=== PATIENT | female | born 1990 ===

== ENCOUNTER 2016-11-16 08:20 | Inpatient (IN) | payer MEDICAID, SELFPAY ==
[2016-11-16 08:46] VITALS: BMI 32.3
[2016-11-16] MEDS: Lactated Ringer's 1,000 ML IV SCH ×2 (09:00→10:00)
[2016-11-16] MEDS ORDERED: ceFAZolin 1 GM in Sodium Chloride 0.9% 100 ML IVPB ONE (09:03)
--- NOTE | 2016-11-16 09:21 | OBHP ---
Datetime: 11/16/2016 09:13 IP Adm Impression: Term, intrauterine IP Admit Plan: Admit to unit Admit Comment, IP Provider: 26yo edc/10/01 by 22 wk us prsnts for repeat cd. She denies srom, vag b leeding, decreased pelvic pain ol ctxs. obhx: cd x1 w/ h/o preeclampsia pmhx _ pshx:denies nkda medic: pnv i: 39wks p: repeat cd informed consent obtained preop labs Pelvic Type - PN: Adequate Extremities - PN: Normal Abdomen - PN: Normal Breast - PN: Normal Lungs - PN: Normal Heart - PN: Normal Neurologic - PN: Normal HEENT - PN: Normal General - PN: Normal FHR - Baseline A Provider: 140 Comments, ACOG Physical Exam: B+/ri/hiv rpr hepBneg Vital Signs Provider: Within Normal Limits NICHD Variability Prov Fetus A: Moderate 6-25bpm FHR Category Provider Fetus A: Category I NICHD Decel Fetus A IP Provider: None Genitourinary Exam: Normal
[2016-11-16 09:27] LABS: BASO # 0.1 K/uL (0.0-0.2); BASO % 0.8 % (0.0-2.0); EOS # 0.1 K/uL (0.0-0.7); EOS % 1.7 % (0.0-4.0); HEMATOCRIT 39.6 % (34.0-47.0); LYMPH # 1.5 K/uL (1.0-4.3); MEAN CELL VOLUME 79.1 fl (81.0-99.0); MEAN CORPUSCULAR HEMOGLOBIN 26.4 pg (27.0-31.0); MEAN CORPUSCULAR HGB CONC 33.4 g/dL (33.0-37.0); MEAN PLATELET VOLUME 10.6 fl (7.2-11.7); MONO # 0.5 K/uL (0.0-0.8); MONO % 6.2 % (0.0-10.0); NEUT # 5.3 K/uL (1.8-7.0); NEUT % 71.3 % (50.0-75.0); RED CELL DISTRIBUTION WIDTH 15.6 % (11.5-14.5); WHITE BLOOD COUNT 7.5 K/uL (4.8-10.8)
[2016-11-16] MEDS ORDERED: Oxytocin 30 units/LR 500ML 30 U/500 ML BAG IV ONE (09:41)
[2016-11-16] MEDS ORDERED: ePHEDrine 50 mg/ml Inj ONE (10:18)
[2016-11-16] MEDS ORDERED: Sodium Chloride 0.9% 10 ML IV ONE (10:18)
[2016-11-16] MEDS ORDERED: Phenylephrine 10 mg/ml Inj ONE (10:18)
[2016-11-16] MEDS ORDERED: Morphine 1 mg/ml preservative-free Inj(Duramorph) ONE (10:24)
[2016-11-16] MEDS ORDERED: Oxycodone/Acetaminophen 5/325 mg Tab PO PRN ×5 (11:35→16:20)
[2016-11-16] MEDS ORDERED: DiphenhydrAMINE 50 mg/ml Inj IVP PRN ×2 (11:35→16:20)
[2016-11-16] MEDS ORDERED: Oxytocin 30 units/LR 500ML 30 U/500 ML BAG IV SCH (15:15)
--- NOTE | 2016-11-16 15:25 | OBDS ---
DELIVERY PERSONNEL Delivery Doctor: Janis Landon MD Scrub Nurse: Tianna Rivers OBT Explosives Detonator: Liv Flores RN Anesthesiologist: Milagro Chino MD MATERNAL INFORMATION Delivery Anesthesia: Spinal Medications in Delivery: Pitocin 30 units Estimated Blood Loss (ml): 600 Placenta Cultured: No Maternal Complications: None Provider Comments: Preoperative diagnosis: 39 week gestation; history of prior section postoperative diagnosis is same procedure was a repeat low transverse section Surgeon: ANAIS Villagomez M.D. Anesthesia: Spinal Anesthesiologist Dr. Chino and Dr. Louise EBL: 600 mL Complications none findings showed medical lightly stained meconium fluid; loose nuchal cord; viable male infant with Apgars of 9 and 9: Weight 3445 g Destination to nursery patient to recovery room in satisfactory condition Complications none Bergman cath to [id number] LABOR SUMMARY EDC: 11/23/2016 00:00 No. Babies in Womb: 1 Attempted: No Labor Anesthesia: Spinal LABOR INFORMATION Reason for Induction: Not Applicable Oxytocin: N/A Group B Beta Strep: Negative Steroids Given: None Reason Steroids Not Administered: Not Applicable MEMBRANES Membranes Rupture Method: Artificial Rupture of Membranes: 11/16/2016 11:38 Length of Rupture (hrs): 0.02 Amniotic Fluid Color: Light Meconium Amniotic Fluid Amount: Moderate Amniotic Fluid Odor: Normal STAGES OF LABOR Stage 3 hrs: 0 Stage 3 min: 1 CSECTION DELIVERY Primary Indication: Repeat Elective CSection Urgency: Elective CSection Incidence: Repeat Labor: No Labor Elective: Elective CSection Incision: Lower Uterine Transverse BABY A INFORMATION Delivery Date/Time: 11/16/2016 11:39 Method of Delivery: Born in Route : No : N/A Forceps: N/A Vacuum Extraction: N/A Shoulder Dystocia : No SHOULDER DYSTOCIA BABY A Delivery Date/Time: 11/16/2016 11:39 PRESENTATION/POSITION BABY A Presentation: Cephalic Cephalic Presentation: Vertex Vertex Position: Right Occipital Posterior Breech Presentation: N/A PLACENTA INFORMATION BABY A Placenta Delivery Time : 11/16/2016 11:40 Placenta Method of Delivery: Expressed Placenta Status: Delivered SCORES BABY A Heart Rate 1 min: >100 bpm Resp Effort 1 min: Good Cry Reflex Irritability 1 min: Cough or Sneeze or Pulls Away Muscle Tone 1 min: Active Motion Color 1 min: Body [place], Extremities Blue Resuscitation Effort 1 min: Tactile Stimulation SCORE 1 MIN: 9 Heart Rate 5 min: >100 bpm Resp Effort 5 min: Good Cry Reflex Irritability 5 min: Cough or Sneeze or Pulls Away Muscle Tone 5 min: Active Motion Color 5 min: Body [place], Extremities Blue Resuscitation Effort 5 min: Tactile Stimulation SCORE 5 MIN: 9 INFORMATION BABY A Gestational Age at Delivery: 39.0 Gestational Status: Term Infant Outcome : Liveborn Condition : Stable Sex: Male IDENTIFICATION/MEDS BABY A ID Band Number: [id number] ID Band Location: Left Leg; Left Arm WEIGHT/LENGTH BABY A Birthweight (gms): 3445 Infant Weight (lb): 7 Weight (oz): 9 CORD INFORMATION BABY A No. Cord Vessels: 3 Nuchal Cord : Around Neck x1, Loose Cord Blood Taken: N/A Suction: Mouth; Nose ASSESSMENT BABY A Infant Complications: None Physical Findings at Delivery: Within Normal Limits Infant Respirations: Grunting; Nasal Flaring Cash Register Repairer/ALS Called : No Infant Care By: zak Colindres Transferred To: Nursery
[2016-11-16] MEDS ORDERED: Simethicone 80 mg Chewtab PO SCH (16:00)
[2016-11-16] MEDS ORDERED: Lactated Ringer's 1,000 ML IV SCH (16:45)
[2016-11-16] MEDS: Simethicone 80 mg Chewtab PO SCH (21:29)
[2016-11-17] MEDS: Simethicone 80 mg Chewtab PO SCH ×4 (03:42→22:16)
[2016-11-17 06:33] LABS: BASO # 0.1 K/uL (0.0-0.2); BASO % 0.5 % (0.0-2.0); EOS # 0.1 K/uL (0.0-0.7); EOS % 0.6 % (0.0-4.0); HEMATOCRIT 33.8 % (34.0-47.0); LYMPH # 1.1 K/uL (1.0-4.3); LYMPH % 11.7 % (20.0-40.0); MEAN CELL VOLUME 79.7 fl (81.0-99.0); MEAN CORPUSCULAR HEMOGLOBIN 26.4 pg (27.0-31.0); MEAN CORPUSCULAR HGB CONC 33.1 g/dL (33.0-37.0); MONO # 0.5 K/uL (0.0-0.8); MONO % 4.9 % (0.0-10.0); NEUT % 82.3 % (50.0-75.0); RED CELL DISTRIBUTION WIDTH 15.5 % (11.5-14.5); WHITE BLOOD COUNT 9.7 K/uL (4.8-10.8)
[2016-11-17] MEDS: Oxycodone/Acetaminophen 5/325 mg Tab PO PRN ×2 (07:29→22:19)
[2016-11-18] MEDS: Oxycodone/Acetaminophen 5/325 mg Tab PO PRN (03:11)
[2016-11-18] MEDS: Simethicone 80 mg Chewtab PO SCH ×4 (03:40→22:12)
--- NOTE | 2016-11-18 07:14 | OBPPN ---
Datetime: 11/18/2016 06:29 PP Pain Prov: Within normal limits PP Nausea Prov: Denies PP Flatus Prov: No PP BM Prov: Yes PP Breasts Prov: Not Done PP Heart Prov: Normal PP Lungs Prov: Normal PP Abdomen/Uterus Prov: Normal PP Lochia Prov: Normal PP Vulva/Perineum Prov: Not Done PP CVA Tenderness Prov: Normal PP Extremities Prov: Normal PP C/S Incision Prov: Normal PP Progress Prov: Abnormal PP Comments Phys Exam Prov: Pt is bottle feeding PP Impression Prov: Normal progression PP Plan Prov: Continue present management PP Progress Note Prov: S: 26 yo s/p on 11/16/16. Pt. is seen and examined at bedside t his AM. No overnight events. Pt denies abdominal pain. d/c hall, dressing removed, incision site loo ks normal. no nausea, advised to advance diet as tolerated. Breast feeding with difficulty, sharing t hat there is no breast milk let down. Encouraged her to keep trying while she supplements with formul a since colostrum is highly beneficial. Denies Lochia. Bowel movement last night at 11pm, stopped pas sing gas. Denies fever/chills, diarrhea, nausea/vomiting, chest pain, dyspnea, and dizziness. O: VS: stable GEN: NAD, seen baby Cardio: s1s2, no M/G/R Resp: clear breath sounds b/l Abdomen: BS+, tenderness to palpation. Incision scar noted, well healing no exudate seen, dry and intact. Uterus is firm and at the level of the umbilicus. EXT: No edema, calves nontender NEURO/PSYCHI: AAOx3, no grossly focal deficit, preserved affect and mood. Assessment/Plan: 26yo s/p on 11/16/16. Pt remains afebrile, denies pain, doing well on POD#2. OOB with caution SCDs for DVT prophylaxis, encouraged ambulating Percocet 5/325mg, and Ibuprofen 600mg for pain. Colace 100mg PO BID for constipation Encourage and ambulating f/u CBC post op, stable 11.2/33.8 Anticipated d/c to home tomorrow, 11/19/16. Juan Alberto Valenzuela M.D. PGY-1 IP PP Procedures: None Vital Signs Provider PP: Reviewed
--- NOTE | 2016-11-18 11:32 | OBPPN ---
Datetime: 11/18/2016 06:29 PP Progress Note Prov: S: 26 yo s/p on 11/16/16. Pt. is seen and examined at bedside t his AM. No overnight events. Pt denies abdominal pain. d/c hall, dressing removed, incision site loo ks normal. no nausea, advised to advance diet as tolerated. Breast feeding with difficulty, sharing t hat there is no breast milk let down. Encouraged her to keep trying while she supplements with formul a since colostrum is highly beneficial. Denies Lochia. Bowel movement last night at 11pm, stopped pas sing gas. Denies fever/chills, diarrhea, nausea/vomiting, chest pain, dyspnea, and dizziness. O: VS: stable GEN: NAD, seen baby Cardio: s1s2, no M/G/R Resp: clear breath sounds b/l Abdomen: BS+, tenderness to palpation. Incision scar noted, well healing no exudate seen, dry and intact. Uterus is firm and at the level of the umbilicus. EXT: No edema, calves nontender NEURO/PSYCHI: AAOx3, no grossly focal deficit, preserved affect and mood. Assessment/Plan: 26yo s/p on 11/16/16. Pt remains afebrile, denies pain, doing well on POD#2. OOB with caution SCDs for DVT prophylaxis, encouraged ambulating Percocet 5/325mg, and Ibuprofen 600mg for pain. Colace 100mg PO BID for constipation Encourage and ambulating f/u CBC post op, stable 11.2/33.8 Anticipated d/c to home tomorrow, 11/19/16. Juan Alberto Valenzuela M.D. PGY-[address] Jernigan: I have evaluated the patient independently and I agree with the above. The patient is a POD #1, healing well and continue post op orders
[2016-11-19] MEDS: Oxycodone/Acetaminophen 5/325 mg Tab PO PRN (03:00)
[2016-11-19] MEDS: Simethicone 80 mg Chewtab PO SCH ×2 (06:01→09:54)
--- NOTE | 2016-11-19 08:42 | OBPPN ---
Datetime: 11/19/2016 08:36 PP Pain Prov: Within normal limits PP Nausea Prov: Denies PP Flatus Prov: Yes PP BM Prov: Yes PP Abdomen/Uterus Prov: Normal PP Lochia Prov: Normal PP C/S Incision Prov: Normal PP Progress Prov: Not Applicable PP Comments Phys Exam Prov: Incison: intact w/ steri strips PP Impression Prov: Normal progression PP Plan Prov: Discharge PP Progress Note Prov: POD 3 s/p Repeat LTCS, doing well, bottle feeding Discharge home today Vital Signs Provider PP: Reviewed
--- NOTE | 2016-11-19 08:42 | OBDCSUM ---
Datetime: 11/19/2016 08:40 Discharged to, Provider: Home Follow up at, Provider: Clinic Disch Instr Activity: Normal activity Disch Instr Diet: Regular Discharge Instructions, Provider: Routine instructions given Discharge Diagnosis, Provider: Term Delivered Discharge Time: 11/19/2016 08:40 Follow up in weeks, Provider: 1-2 weeks Contraception discussed, Prov: No Disch Activity Restrictions: No exercising; No lifting; No driving; No sexual activity; Nothing in v agina - [place], tampons, douche
[2016-11-19 19:41] VITALS: BP 118/79; PULSE 98; RESP 20; TEMP 98.1; O2SAT 98
--- NOTE | 2016-11-28 19:20 | OP ---
PROCEDURE DATE: PREOPERATIVE DIAGNOSES: 1. A 39-week gestation. 2. History of prior section. 3. Elective repeat section. POSTOPERATIVE DIAGNOSES: 1. A 39-week gestation. 2. History of prior section. 3. Elective repeat section. PROCEDURE: A repeat low transverse section. SURGEON: Dr. Costa. GROUND MIXER: Dr. Nicci Rodriguez. TYPE OF ANESTHESIA: Spinal. ANESTHESIA ADMINISTERED BY: Dr. Chino and Dr. Louise. ESTIMATED BLOOD LOSS: 600 mL. COMPLICATIONS: None. FINDINGS: Showed a viable male infant with Apgars of 9 and 9, weight of 3445 grams, lightly stained meconium fluid, loose nuchal cord. DESTINATION: The patient to recovery room in satisfactory condition in to new born nursery. Bergman catheter to drainage. INDICATIONS: The patient is a 26-year-old female, 2, para 1, who presented at 39 weeks for an elective repeat section. DESCRIPTION OF PROCEDURE: An inform consent was obtained. The benefits versus risks of section and a were discussed with the patient, she desired surgical management. The patient was taken back to the operating room where she underwent spinal anesthesia without complications. She was placed in the dorsal supine position with leftward tilt, prepped and draped in the routine sterile fashion. A Pfannenstiel skin incision was made at the site of the old scar and this was carried down to the underlying rectus fascia, which was incised in the midline and extended bilaterally. The inferior rectus fascia, which was grasped with Rhona's and the underlying rectus muscle was dissected off. The same procedure was performed along the superior rectus fascial edge. The peritoneum was identified and tented upward and incised superiorly and inferiorly. A bladder blade was placed and a bladder flap created using sharp and blunt dissection. A low uterine transverse incision was made with the knife and the uterine cavity was entered bluntly. The uterine incision was extended digitally laterally and in a superior and inferior manner. The amniotic membrane was ruptured and the was delivered in the routine fashion for cephalic presentation. The cord was clamped and cut. The mouth and nares were suctioned and the baby was handed off to the awaiting bait tier. Cord blood was collected. The placenta was expressed. The uterus was exteriorized and cleared of all clots and debris. The uterine incision was reapproximated with 0 Vicryl in a running locked fashion followed by an imbricated stitch. The abdomen was irrigated and cleared of all clots and debris. The uterus was reentered into the abdominal cavity and the incision was inspected, good hemostasis was confirmed. The pelvic cavity was irrigated and cleared of all clots and debris. The peritoneum was reapproximated with 2-0 Vicryl in a running fashion. The muscle was reapproximated with 0 Vicryl in a running fashion, initially beginning in the left lateral corner going to the midline and another stitch beginning in the right lateral corner going to the midline, each suture was tied respectively. The wound was irrigated and good hemostasis was confirmed. Subcutaneous tissue was reapproximated with 2-0 plain in a simple interrupted fashion and the skin was closed. All sponge, lap and needle count were correct x4. The patient returned to recovery room in satisfactory condition. Of note, Dr. Rodriguez was my sales assistants and salespersons. She used to do surgical entry, surgical exposure, surgical hemostasis, delivery of the baby and surgical closure. Her assistance was essential to the performance of this procedure. Bev Costa MD
== END 2016-11-19 13:45 | disposition home or self-care (01) | DRG 766 ==
LOC: H.EROB2 08:20 → H.L&D 09:16 → H.OB/GYN 16:00
PROVIDERS: ADMIT Obstetrics & Gynecology; ATTEND Obstetrics & Gynecology
PROC: 10D00Z1 Extraction of Products of Conception, Low, Open Approach (ICD-10-PCS; principal; 2016-11-16)
PROC: 4A1HXCZ Monitoring of Products of Conception, Cardiac Rate, External Approach (ICD-10-PCS; 2016-11-16)
DX: O34.211 Maternal care for low transverse scar from previous cesarean delivery (principal); K59.00 Constipation, unspecified; O69.81X0 Labor and delivery complicated by cord around neck, without compression, not applicable or unspecified; Z37.0 Single live birth; Z3A.39 39 weeks gestation of pregnancy; N85.8 Other specified noninflammatory disorders of uterus